=== PATIENT | female | born 1955 | race Caucasian/White ===

== ENCOUNTER 2020-11-27 11:38 | Outpatient (CLI) | payer MEDICARE, BC ==
[2020-11-27 12:24] LABS: Hemoglobin 11.7 g/dL (12.0-15.5); Mean Corpuscular Hemoglobin 29.8 pg (27.0-33.0); Mean Corpuscular Volume 93.1 fl (81.6-98.3); Mean Platelet Volume 9.1 fl (7.4-10.4); Platelet Count 238 10x3/uL (150-450); RBC Distribution Width 14.5 % (11.5-14.5); Red Blood Cell (RBC) Count 3.93 10x6/uL (3.90-5.03)
[2020-11-27 12:44] LABS: Anion Gap 12 mmol/L (10-20); BUN (Urea Nitrogen) 20 mg/dL (9.8-20.1); Calc. Creatinine Clearance 0 mL/min (70-130); Calcium 9.3 mg/dL (7.8-10.44); Carbon Dioxide 27 mmol/L (23-31); Chloride 104 mmol/L (98-107); Glucose 96 mg/dL (80-115); Potassium 4.3 mmol/L (3.5-5.1); Sodium 139 mmol/L (136-145)
[2020-11-28 04:20] LABS: SARS-CoV-2 PCR by NAA Not Detected (NotDetected)
== END 2020-11-27 11:39 | disposition home or self-care (01) ==
LOC: CSHLAB 11:38
PROVIDERS: ATTEND Otolaryngology Plastic Surgery within the Head & Neck
DX: Z01.818 Encounter for other preprocedural examination (principal); Z20.822 Contact with and (suspected) exposure to COVID-19; H90.71 Mixed conductive and sensorineural hearing loss, unilateral, right ear, with unrestricted hearing on the contralateral side; R94.31 Abnormal electrocardiogram [ECG] [EKG]
CPT/HCPCS: 80048; 85027; 87635; 93005; 93010; U0003; U0005

== ENCOUNTER 2020-12-01 06:22 | Day surgery (SDC) | payer MEDICARE, BC ==
[2020-11-30 11:22] VITALS: BMI 39.9
[2020-12-01] MEDS ORDERED: SUGAMMADEX SODIUM 500 MG/5 ML VIAL ONE (06:25)
[2020-12-01] MEDS ORDERED: Lidocaine 4% Topical Sol 50 ML BOT ONE (06:25)
[2020-12-01] MEDS ORDERED: Oxymetazoline HCl 0.05% ( 15 ML ) ONE (06:25)
[2020-12-01] MEDS ORDERED: Lidocaine 1% MPF 2 ML VIAL ONE (06:25)
[2020-12-01] MEDS ORDERED: PROPOFOL 20 ML ONE (06:41)
[2020-12-01] MEDS ORDERED: Fentanyl 100 MCG/2 ML VIAL ONE (06:41)
[2020-12-01] MEDS ORDERED: Rocuronium Bromide 10 MG/ML (10ML VIAL) ONE (06:42)
[2020-12-01] MEDS ORDERED: Ketorolac Tromethamine 30 MG/ML VIAL ONE (06:42)
[2020-12-01] MEDS ORDERED: Midazolam HCl 2 mg/2 ml Vial ONE (06:42)
[2020-12-01] MEDS ORDERED: Dexamethasone 20 MG/5 ML VIAL ONE (06:42)
[2020-12-01] MEDS ORDERED: Lidocaine 1% PF 5 ML VIAL ONE (06:42)
[2020-12-01] MEDS ORDERED: Ondansetron PF 4 MG/2 ML Vial ONE (06:42)
[2020-12-01] MEDS ORDERED: Methylene Blue 50 MG/10 ML AMPUL ONE (06:43)
[2020-12-01] MEDS ORDERED: CEFAZOLIN 1 GM VIAL ONE (06:43)
[2020-12-01] MEDS ORDERED: Lidocaine 1% w/Epinephrine 1:100K 20 ML VIAL ONE (06:43)
[2020-12-01] MEDS ORDERED: Mupirocin 2% Ointment 22 GM Tube ONE (06:57)
[2020-12-01] MEDS ORDERED: PHENYLEPHRINE-NS 100 MCG/ML 10 ML SYRINGE ONE (08:00)
[2020-12-01] MEDS ORDERED: Neomycin-Polymyxin 1 ML AMP ONE (08:48)
== END 2020-12-01 11:03 | disposition home or self-care (01) ==
LOC: CSHSDC 06:22
PROVIDERS: ATTEND Otolaryngology Plastic Surgery within the Head & Neck
DX: H90.71 Mixed conductive and sensorineural hearing loss, unilateral, right ear, with unrestricted hearing on the contralateral side (principal)
CPT/HCPCS: 69714; L8690 ×2; Q9968; J0690; J1100; J1885; J2250; J2405; J2704; J3010